=== PATIENT | male | born 1995 | race Caucasian/White ===

== ENCOUNTER 2018-12-28 08:13 | Emergency (ER) | payer SELFPAY ==
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
[2018-12-28 10:05] VITALS: BP 120/64
== END 2018-12-28 09:50 | disposition home or self-care (01) ==
LOC: ED 08:13
DX: S39.92XA Unspecified injury of lower back, initial encounter (principal); W22.8XXA Striking against or struck by other objects, initial encounter; Y93.89 Activity, other specified; Y92.89 Other specified places as the place of occurrence of the external cause
CPT/HCPCS: 99282